=== PATIENT | male | born 1980 | race Caucasian/White ===

== ENCOUNTER 2016-07-09 16:49 | Emergency (ER) | payer OTHER ==
[~2016-07-09] VITALS: Ht 180.3 cm; Wt 83.9 kg
[~2016-07-09 16:49] MED LIST: OXYCODONE HCL15 M1 PO; OXYCONTIN40 M1 PO
--- NOTE | 2016-07-09 17:02 | ED GI/GU/ABDOMINAL COMPLAINT ---
History of Present Illness General Chief Complaint: Abdominal Pain/Flank Pain Stated Complaint: ABD PAIN Source: patient Exam Limitations: no limitations Vital Signs & Intake/Output Vital Signs & Intake/Output Vital Signs Date Time Temp Pulse Resp B/P Pulse O2 O2 Flow FiO2 Ox Delivery Rate 07/09 1852 99 Room Air 07/09 1852 98.9 107 18 154/68 100 Room Air ED Intake and Output 07/10 0000 07/09 1200 Intake Total 1000 Output Total Balance 1000 Intake, IV 1000 Patient 185 lb Weight Allergies Coded Allergies: apple (HIVES 03/29/16) Reconcile Medications Lisinopril/Hydrochlorothiazide (Lisinopril-Hctz 10-12.5 MG Tab) 10 MG-12.5 MG TABLET 1 TAB PO DAILY BP (Reported) Metoclopramide HCl (Reglan) 10 MG TABLET 1 TAB PO 4 TIMES/DAY PRN NAUSEA/ VOMITING 30 minutes before meals and bedtime Naproxen (Naprosyn) 500 MG TABLET 1 TAB PO BID PRN PAIN Oxycodone HCl 15 MG TABLET 15 MG PO Q4-6 PRN PRN PAIN (Reported) Oxycodone HCl (Oxycontin) 40 MG TAB.ER.12H 40 MG PO Q4-6 PRN PRN PAIN ( Reported) Triage Note: PT STATES HE WAS HAVING GALLBLADDER PROBLEMS WORSE TODAY. PT STATES HE IS HAVING PROBLMES EATING. Triage Nurses Notes Reviewed? yes HPI: This patient is a 35-year-old male with a past medical history of gallstones. He presented to the emergency department today for evaluation of mid upper abdominal pain started last night and woke him from sleep. He reported that he has had similar symptoms in the past. He reported that the beginning of this year he was evaluated by Dr. Gibbs and was told that he had passed a gallstone. They told him at that time that if this happened again they may have to take his gallbladder out. He reported that the pain started last night, has been constantly at an 8 out of 10, sharp, and worse when he eats or stands up. The patient reported that he vomited once today after eating. He had associated nausea at that time, but not currently. He reported decreased appetite. No fevers, chills, chest pain, difficulty breathing, diarrhea, or any other associated symptoms. (DEDE FRIEDMAN,NOHELIA) Past History Travel History Traveled to [place] past 21 day No Medical History Any Pertinent Medical History? see below for history Neurological: NONE EENT: NONE Cardiovascular: NONE Respiratory: NONE Gastrointestinal: GERD, peptic ulcer disease Hepatic: NONE Renal: NONE Musculoskeletal: fracture Psychiatric: anxiety Endocrine: NONE Blood Disorders: NONE Cancer(s): NONE IT CONSULTANT/Reproductive: NONE History of MRSA: No History of VRE: No History of CDIFF: No Influenza Vaccine: 01/01/16 Surgical History Surgical History: TRAUMA SURGERY, LEFT AKA Psychosocial History Who do you live with Spouse Services at Home None What is your primary language Syrian Tobacco Use: Never used ETOH Use: occasional use Illicit Drug Use: denies illicit drug use Family History Hx Contributory? No (NOHELIA AGUAYO PA-C) Review of Systems Review of Systems Constitutional: Reports: no symptoms. EENTM: Reports: no symptoms. Respiratory: Reports: no symptoms. Cardiovascular: Reports: no symptoms. GI: Reports: see HPI. Genitourinary: Reports: no symptoms. Musculoskeletal: Reports: no symptoms. Skin: Reports: no symptoms. Neurological/Psychological: Reports: no symptoms. All Other Systems: Reviewed and Negative (NOHELIA AGUAYO PA-C) Physical Exam Physical Exam Gastrointestinal: normal bowel sounds, soft, no organomegaly, POSITIVE Nieves'S SIGN. nO mCbURNEY'S POINT TENDERNESS. nEGATIVE rOVSING SIGN. nO REBOUND OR GUARDING. nO HERNIAS APPRECIATED. nONDISTENDED Comments: Well-developed well-nourished person in no acute distress HEENT: Normal EENT exam, normocephalic, moist mucous membranes Neck: Supple no lymphadenopathy Back: Normal gait Respiratory: No respiratory distress. Speaking in full sentences Extremity: Normal and equal pulses Neuro: Alert oriented x3, motor sensory normal, cranial nerves II through XII grossly intact. Skin: No appreciable rash on exposed skin, skin is warm and dry. Psych: Mood and affect is normal, memory and judgment is normal. Core Measures ACS in differential dx? No Severe Sepsis Present: No Septic Shock Present: No (NOHELIA AGUAYO PA-C) Progress Differential Diagnosis: AMI, appendicitis, biliary colic, bowel obstruction, colon cancer, cholecystitis, diverticulitis, gastritis, hepatitis, hernia, ischemic bowel, inflamm bowel dis, pancreatitis, PUD/GERD, perforated viscous, ureterolithiasis, UTI/pyelo Plan of Care: Orders Procedure Date/time Status Add-on Test (ER Only) 07/09 1832 Active ETHANOL 07/09 172 Complete LIPASE 07/09 1699 Complete LACTIC ACID 07/09 1699 Complete DIRECT BILIRUBIN 07/09 1699 Complete COMPREHENSIVE METABOLIC PANEL 07/09 1699 Complete CBC WITHOUT DIFFERENTIAL 07/09 1699 Complete AMYLASE 07/09 1699 Complete Laboratory Tests 07/09/161999: Lactic Acid Cancelled 07/09/16 172: Anion Gap 12, Estimated GFR > 60, BUN/Creatinine Ratio 17.1, Glucose 119 H, Lactic Acid 1.7, Calcium 9.0, Total Bilirubin 1.7 H, Direct Bilirubin 0.4, AST 173 H, ALT 126 H, Alkaline Phosphatase 121, Total Protein 7.3, Albumin 4.2, Globulin 3.1, Albumin/Globulin Ratio 1.4, Amylase 62, Lipase 440 H, CBC w Diff NO MAN DIFF REQ, RBC 5.10, MCV 84.1, MCH 28.5, RDW 12.8, MPV 7.2 L, Gran % 77.6 H, Lymphocytes % 16.4 L, Monocytes % 5.1, Eosinophils % 0.3, Basophils % 0.6, Absolute Granulocytes 4.7, Absolute Lymphocytes 1.0 L, Absolute Monocytes 0.3, Absolute Eosinophils 0, Absolute Basophils 0, PUBS MCHC 33.8, Serum Alcohol < 10.0 Initial ED EKG: none Comments: 07/09/2016 6:52:11 PM: I discussed labs with the patient. He reported that he does drink beer, "but only on the weekends and not a lot." He reported that maybe last time he was told he had pancreatitis. He reported that, "I have slowed down drinking a lot since the holidays." (DEDE FRIEDMAN,NOHELIA) Departure Departure Disposition: HOME OR SELF CARE Condition: Stable Clinical Impression Primary Impression: Biliary colic Referrals: CROW REINOSO,JODY Pate (PCP/Family) RACHEL REINOSO,MARÍA Boyd Additional Instructions: Please call your liquor establishment manager's information has been provided to you in this packet for further evaluation and possible surgical management of your symptoms. Return for any worsening symptoms or concerns. Departure Forms: Customer Survey General Discharge Information Prescriptions: Current Visit Scripts Naproxen (Naprosyn) 1 TAB PO BID PRN PAIN #20 TAB Metoclopramide HCl (Reglan) 1 TAB PO 4 TIMES/DAY PRN NAUSEA/VOMITING #15 TAB 30 minutes before meals and bedtime (DEDE FRIEDMAN,NOHELIA) PA/CAR REPAIRER PULLMAN Co-Sign Statement Statement: ED Attending supervision documentation- [] I saw and evaluated the patient. I have also reviewed all the pertinent lab results and diagnostic results. I agree with the findings and the plan of care as documented in the PA's/CAR REPAIRER PULLMAN's documentation. [x] I have reviewed the ED Record and agree with the PA's/CAR REPAIRER PULLMAN's documentation. [] Additions or exceptions (if any) to the PAs/CAR REPAIRER PULLMAN's note and plan are summarized below: [] (JAZZY REINOSO,GIANA Hoyos)
[2016-07-09] MEDS ORDERED: LISINOPRIL-HCT1 EAC2 PO (17:07)
[2016-07-09 17:44] LABS: ABSOLUTE BASOPHIL COUNT 0 /CUMM (0.0-0.2); ABSOLUTE EOSINOPHIL COUNT 0 /CUMM (0.0-0.7); ABSOLUTE GRANULOCYTE CT 4.7 /CUMM (1.4-6.5); ABSOLUTE MONOCYTE COUNT 0.3 /CUMM (0.10-0.60); BASOPHIL % 0.6 % (0.0-2.0); EOSINOPHIL % 0.3 % (0-5); GRANULOCYTE % 77.6 % (42.2-75.2); HEMATOCRIT 42.9 % (42-52); MEAN CORPUSCULAR HGB 28.5 PG (27.0-31.0); MEAN CORPUSCULAR HGB CONC 33.8 G/DL (33.0-37.0); MEAN CORPUSCULAR VOLUME 84.1 FL (80.0-94.0); MEAN PLATELET VOLUME 7.2 FL (7.4-10.4); PLATELET COUNT 218 /CUMM (130-400); RBC DISTRIBUTION WIDTH 12.8 % (11.5-14.5); WHITE BLOOD CELL COUNT 6.1 /CUMM (4.8-10.8)
[2016-07-09 18:53] VITALS: BP 154/68
--- NOTE | 2016-07-09 19:37 | CT SCAN REPORT ---
EXAMINATION: CT ABDOMEN AND PELVIS WITH CONTRAST CLINICAL INFORMATION: Abdominal pain. Pancreatitis. COMPARISON: Abdominal MRI from 03/29/2016. TECHNIQUE: Contiguous axial thin section helical images of the abdomen and pelvis were performed following the administration of 100 mL of intravenous Omnipaque 300. The data set was reformatted in the coronal and sagittal planes and reviewed on an independent workstation. DLP: 388 mGy-cm. FINDINGS: The visualized lung bases are clear. The visualized portions of the heart are unremarkable. The liver is of normal size and diffuse decreased attenuation without focal lesions nor intrahepatic biliary ductal dilation. There are a few layering calculi within the gallbladder lumen. There is no wall thickening or discernible pericholecystic fluid. The spleen and adrenal glands are unremarkable. There is diffuse fatty infiltration to the pancreas. There is faint stranding identified about the pancreatic tail. There are no fluid collections. Both kidneys are of normal size and attenuation without hydronephrosis or nephrolithiasis. Following the administration of IV contrast, prompt symmetric nephrograms are displayed. There is no abdominal free fluid. There is neither mesenteric nor retroperitoneal lymphadenopathy. An IVC filter is in place. Normal unopacified loops of small and large bowel are identified. There is no pelvic free fluid. The urinary bladder is unremarkable. There is neither pelvic nor inguinal lymphadenopathy. Bone windows: Neither sclerotic nor lytic bone lesions are identified. Hardware traversing the left acetabulum is intact without failure or migration. IMPRESSION: Cholelithiasis without evidence of cholecystitis. Faint stranding identified about the ankle detail. No drainable fluid collections are identified. Hepatic steatosis.
[2016-07-09] MEDS ORDERED: REGLAN10 M1 PO (19:43)
[2016-07-09] MEDS ORDERED: NAPROSYN500 M1 PO (19:43)
== END 2016-07-09 19:52 ==
LOC: ERH 16:49
PROVIDERS: Physician Assistant
DX: K80.50 Calculus of bile duct without cholangitis or cholecystitis without obstruction (principal)
CPT/HCPCS: 74177; 96374; 96375; G0480; J1200; J1885

== ENCOUNTER → 2016-08-09 | Day surgery (SDC) | payer OTHER ==
[~2016-08-09] VITALS: Ht 180.3 cm; Wt 79.4 kg
[~2016-08-09] MED LIST changes: +LISINOPRIL-HCT1 EAC2 PO; +NAPROSYN500 M1 PO; +REGLAN10 M1 PO
--- NOTE | 2016-08-09 11:17 | Operative Report ---
Operative/Inv Procedure Report Surgery Date: 08/09/16 Name of Procedure: Laparoscopic cholecystectomy with intraoperative cholangiogram Pre-Operative Diagnosis: choledocholithiasis Post-Operative Diagnosis: same, resolved. Estimated Blood Loss: scant Surgeon/Pot Holder Binder: KENNEDY REINOSO,VEGA Hidalgo/MIKE Phillips Anesthesia: general endotracheal tube Drains: none Specimens: gallbladder Operative/Procedure Note Note: After informed consent patient is brought to the operating room and laid supine. General anesthesia was obtained and her abdomen was prepped and draped. The skin above the umbilicus infiltrated with local anesthesia and a curvilinear incision made sharply. We came down through the subcutaneous tissues bluntly and grasped the fascia with Washington's. A fasciotomy was created sharply and stay sutures placed. The peritoneum was entered sharply and a blunt Montero port was placed. Pneumoperitoneum was achieved. 3, 5 mm ports were placed in the epigastrium and right upper quadrant after local anesthesia was instilled and under direct vision the camera. She's placed in reverse Trendelenburg and rotated towards the left. The gallbladder is identified. It was grasped at the dome and retracted towards the head. Infundibulum was then grasped. Adhesions to the undersurface were taken down with blunt and cautery dissection. We dissected both sides the triangle Calot peritoneal tissue with cautery. The artery was medial and its normal anatomic position. It was cauterized medially to allow it to be mobilized away from the duct. Hollis was cleared of areolar tissue with cautery. The arteries was doubly ligated with clips. A proximal clip was placed on the duct and then duct ductotomy created. The cholangiogram catheter was placed through the epigastric port site down into the cystic duct. The balloon was inflated. Under fluoroscopic imaging, cholangiogram was performed. Findings showed filling of the common bile duct and right intrahepatic duct. There was no filling defects. There was easy contrast extravasation into the duodenum. Cholangiogram was catheter was then removed and passed off the field. The distal cystic duct was then doubly ligated with clips. Gallbladder is removed from the fossa electrocautery. It was placed in Endo Catch bag and cinched up. Right upper quadrant was and suction irrigated normal saline. Hemostasis achieved with cautery. The ports were then removed and the gallbladder delivered and passed off the field. The fascia was closed with 0 Vicryl suture. Skin incisions closed with 4-0 Vicryl. Steri-Strips and sterile dressing applied. Sponge and needle counts are correct. CC: CROW REINOSO,JODY Pate
--- NOTE | 2016-08-09 17:44 | RADIOLOGY REPORT ---
EXAMINATION: XR INTRAOPERATIVE FLUOROSCOPY AND SPOT FILMS CLINICAL INDICATION: OR cholangiogram. COMPARISON: CT scan of the abdomen and pelvis dated 07/09/2016. TECHNIQUE: Fluoroscopic equipment was dedicated to the operating room for the performance of an cholangiogram. 4 spot films were obtained and are submitted for review. FLUOROSCOPY TIME: 0.5 minutes. FINDINGS: There is opacification of a normal caliber common bile duct. The distalmost CBD tapers to a string sign in the ampullary region, most likely related to the catheter. Free spill of contrast into the duodenal C-sweep is noted. No abnormal filling defects are seen within the common bile duct. Intrahepatic ducts are partially opacified and appear unremarkable. Chris are seen in the right upper quadrant from prior cholecystectomy. Cystic duct remnant appears unremarkable. An IVC filter is in place with tip at the level of the right L3 pedicle. IMPRESSION: Normal caliber common bile duct with no filling defect seen. Distalmost tapering of CBD likely related to catheter. Please refer to operative notes.
== END ==
LOC: STS 01:33
DX: K80.10 Calculus of gallbladder with chronic cholecystitis without obstruction (principal); I10 Essential (primary) hypertension; M25.50 Pain in unspecified joint
CPT/HCPCS: 74000; 88304; J0131; J0690; J2250